=== PATIENT | male | born 2000 | race Caucasian/White ===

== ENCOUNTER 2024-12-07 20:07 | Emergency (ER) | payer SELFPAY ==
[2024-12-07 20:08] VITALS: BP 111/76
[2024-12-07 20:11] VITALS: BMI 20.5
--- NOTE | 2024-12-07 20:22 | ED.GENMED ---
History of Present Illness
General
Chief Complaint: Alcohol Problem
Source: patient
Exam Limitations: none
Time Seen by Provider: 12/07/24 20:12
Nursing documentation reviewed up to this point in time: agreed with
History of Present Illness
History of Present Illness:
24-year-old male was at his job, apparently intoxicated he admits to drinking some vodka a few hours ago police were called, here he is cooperative admits to drinking alcohol states tomorrow is his last day, Denies any other coingestions he is
cooperative here,, This was a social alcohol use, no thoughts of harming himself
8:40 PM update more information patient has apparently has a 302 completed by police statements of self-harm
Past History
Past History
ED Past Medical History: None
ED Past Surgical History: None
Social History
Tobacco: Non-smoker
Alcohol: Occasional
Drug: None
Personal: Single
Living: with family
Employment: Employed
Review of Systems
Review of Systems
All Other Systems: Not applicable
Psychiatric: Denies depression, anxiety or suicidal
Phy Exam
Physical Exam
Physical Exam:
Physical Exam
General: Cooperative intoxicated male no overt signs of head or neck trauma
Neck: No tongue bite no posterior neck pain
Heart: s1/s2 regular rate and rhythm, no murmur. equal radial pulses.
Lungs: no acute respiratory distress. clear bilaterally
Neuro: alert and oriented. no focal neurological deficits
Skin: no rash
Psychiatric: cooperative
Extremities: no edema.
Scores
Withdrawal Assessment of Alcohol
Withdrawal Assessment Completed?: Not applicable
Course
Orders/Labs/Results
Orders:
Orders
12/07/24 20:41
Crisis Consult Urgent
Reason for Consult: 302
12/07/24 21:11
Acetaminophen Urgent
Alcohol Urgent
Complete Blood Count/With Diff Urgent
Comprehensive Metabolic Panel Urgent
Salicylate Urgent
Urine Drug Abuse Screen Urgent
12/07/24 21:36
Nicotine [Nicoderm Transdermal] 14 mg TRANSDERM NOW STA
12/08/24 00:56
Acetaminophen [Tylenol] 650 mg PO NOW STA
12/08/24 01:18
CT Head W/o Iv Contrast Urgent
Comment:
Reason For Exam: hit head
12/08/24 01:36
Olanzapine [Zyprexa] 10 mg IM PRN PRN
12/08/24 08:00
Nicotine [Nicoderm Transdermal] 14 mg TRANSDERM DAILY
Abnormal Lab Results
12/08/24
01:09
Chloride 110 H mmol/L
(98-107)
Salicylates < 1.0 L mg/dl
(2.0-20.0)
Acetaminophen < 10 L ug/ml
(10-30)
12/08/24 01:09
12/08/24 01:09
Vital Signs
Initial and Last Documented VS:
Initial Vital Signs
Pulse Resp BP Pulse Ox
86 18 111/76 96
12/07/24 20:08 12/07/24 20:08 12/07/24 20:08 12/07/24 20:08
Last Documented Vital Signs
Pulse Resp BP Pulse Ox
86 18 111/76 96
12/07/24 20:08 12/07/24 20:08 12/07/24 20:08 12/07/24 20:25
*Pulse Oximetry
SaO2: 96
Oxygen Mode of Delivery: Room air
Patient hypoxic: no
*Critical Care Note
Total Time (30-74mins, 75-104mins- exclusive of procedures): Not Applicable
Update Note
Update Note:
Update no signs of trauma patient is cooperative walks with a steady gait, not vomiting denies any coingestions, like to watch him here for period of time, if he remains cooperative, let him go home in a taxi or have him call family
845 change in plans will be seen by crisis due to 302
11 PM 302 upheld by telepsych
ED Attending Note
-
Portions of this chart may have been created with voice recognition software.� Occasional wrong word or��sound alike� substitutions may have occurred due to the inherent limitations of voice recognition software.
Discharge Plan
Departure
Patient Disposition: Psych Facility
Date of Disposition: 12/07/24
Time of Disposition: 23:01
Patient Status:: 302
Patient with high blood pressure during this ER visit?: No
Condition: Good
Discharge Problem:
Depression with suicidal ideation
Interventions
Interventions:
*Risk Screen - Suicide Last Done: 12/07/24 20:11
*General Assessment Last Done: 12/07/24 20:11
*Neglect/Abuse Screening Last Done: 12/07/24 20:11
*ED- Fall Risk Assessment Last Done: 12/07/24 20:11
*ED COVID-19 Vaccine History Last Done: 12/07/24 20:11
ED- Neurological Assessment Last Done: 12/07/24 20:11
ED-Psychological Assessment Last Done: 12/07/24 20:11
Discharge Date and Time
Print Language: KOREAN
[2024-12-08] MEDS: TYLENOL 650 MG PO (01:01)
[2024-12-08 01:17] LABS: Hematocrit 43.5 % (39.0-52.0); Hemoglobin 15.4 g/dL (13.0-18.0); Mean Corp Hgb Conc. 35.4 g/dL (33.0-37.0); Mean Corpuscular Volume 84.6 fL (80.0-94.0); Nucleated Red Blood Cells % 0 % (-); Platelet Count 190 10^3/uL (130-400); Red Cell Dist. Width 12.5 % (11.5-14.5)
[2024-12-08 01:33] LABS: ALT (SGPT) 20 U/L (0-50); AST (SGOT) 30 U/L (17-59); Albumin 4.7 g/dl (3.5-5.0); Alkaline Phosphatase 79 U/L (38-126); Blood Urea Nitrogen 14 mg/dl (9-20); Calcium 8.4 mg/dl (8.4-10.2); Carbon Dioxide 23 mmol/L (22-30); Chloride 110 mmol/L (98-107); Estimated Creatinine Clearance 115 ml/min; Glucose 88 mg/dl (70-99); Potassium 4.0 mmol/L (3.5-5.1); Sodium 144 mmol/L (135-145); Total Protein 7.0 g/dl (6.3-8.2); eGFR > 60.00
[2024-12-08 01:41] LABS: Salicylate < 1.0 mg/dl (2.0-20.0)
[2024-12-08 01:47] LABS: Acetaminophen < 10 ug/ml (10-30)
[2024-12-08] MEDS: NICODERM TRANSDERMAL 14 MG TRANSDERM (06:25)
[2024-12-08 07:51] VITALS: BP 131/85
[2024-12-08] MEDS: NICODERM TRANSDERMAL TRANSDERM (08:05)
== END 2024-12-08 11:17 ==
LOC: EMR 20:07
PROVIDERS: EMERGENCY PHYSICIAN Emergency Medicine
DX: F32.A Depression, unspecified (principal); R45.851 Suicidal ideations; F10.129 Alcohol abuse with intoxication, unspecified
CPT/HCPCS: 99285; 70450; 80053; 80143; 80179; 82077; 85025